=== PATIENT | male | born 1945 | race Caucasian/White ===

== ENCOUNTER 2020-06-12 06:34 | Observation (INO) ==
--- NOTE | 2020-05-06 11:10 | PAT Medication Instructions ---
Medication Instructions Date of Service May 06, 2020 Home Medications ascorbic acid (vitamin C) 100 mg PO QAM bilberry 150 mg PO QAM cholecalciferol (vitamin D3) 25 mcg PO QAM cyanocobalamin (vitamin B-12) 500 mcg PO PM ginkgo biloba 60 mg PO QAM ginseng 100 mg PO PM [Diyktqvkrpr-Gybzq-MPO Complex] 1 tab PO BID lutein 20 mg PO QAM magnesium 400 mg PO PM omega-3 fatty acids [Fish Oil] 1,000 mg PO PM omeprazole 20 mg PO PM s-adenosylmethionine [Stan-E] 400 mg PO PM saw palmetto 450 mg PO BID tramadol 50 mg PO BID turmeric 1,500 mg PO PM vitamin E 400 unit PO PM STOP taking 2 weeks before surgery If surgery is within 2 weeks, stop taking as soon as possible. bilberry 150 mg PO QAM ginkgo biloba 60 mg PO QAM ginseng 100 mg PO PM [Kqogogqhwvs-Tdvxv-MDG Complex] 1 tab PO BID lutein 20 mg PO QAM omega-3 fatty acids [Fish Oil] 1,000 mg PO PM s-adenosylmethionine [Stan-E] 400 mg PO PM saw palmetto 450 mg PO BID turmeric 1,500 mg PO PM vitamin E 400 unit PO PM DO NOT take the morning of surgery ascorbic acid (vitamin C) 100 mg PO QAM cholecalciferol (vitamin D3) 25 mcg PO QAM Take morning of surgery With a small sip of water, OTHERWISE NOTHING TO EAT OR DRINK AFTER MIDNIGHT: tramadol 50 mg PO BID (if needed, may be taken up to four hours before surgery) Take evening before surgery cyanocobalamin (vitamin B-12) 500 mcg PO PM omeprazole 20 mg PO PM tramadol 50 mg PO BID Other Notes If you have any questions please call us at [phone] or [phone] or [phone] or [phone]
--- NOTE | 2020-05-07 12:50 | Anesthesiology Consultation ---
Date of Service May 07, 2020 Assessment & Plan (1) Encounter for pre-operative examination: Chart Review Chart Review: Acceptable Risk for Surgery (pending surgeon ordered PCP clearance and preop Covid testing ) and Patient seen in Pre Admission Testing Awaiting surgeon ordered PCP clearance scheduled 05/14/20 Per PAT appt on 05/07/20, patient denies any recent travel. No known Covid positive contacts or Covid related symptoms. No known Covid infection in the past 90 days. Preop Covid testing scheduled 05/22/20= will await results. Educated on importance of self quarantining, social distancing and wearing mask in public both for the patient and household contacts. Teaching & Discussion Pre-Anesthesia Teaching/Discussion Notes: Instructed NPO after midnight before surgery,except medications with 15 cc of water. Medication instructions provided according to the [facility] guidelines. History Surgery Operation Date: 05/29/20 07:15 Proposed Procedures p Left Total Hip Arthroplasty - Kavin Macedo MD Height/Weight Height: 5 ft 10.5 in Weight: 86.8 kg Allergies Allergy/AdvReac Type Severity Reaction Status Date / Time Penicillins AdvReac Mild Gastrointestinal Verified 04/18/20 08:35 Upset Medications Home Medications Medication Instructions Recorded Confirmed Last Taken ascorbic acid (vitamin C) [Vitamin 100 mg PO QAM 04/18/20 04/18/20 Unknown C] bilberry 150 mg PO QAM 04/18/20 04/18/20 Unknown cholecalciferol (vitamin D3) 25 mcg PO QAM 04/18/20 04/18/20 Unknown [Vitamin D3] cyanocobalamin (vitamin B-12) 500 mcg PO PM 04/18/20 04/18/20 Unknown ginkgo biloba 60 mg PO QAM 04/18/20 04/18/20 Unknown ginseng 100 mg PO PM 04/18/20 04/18/20 Unknown viirehci-udjzw-tlj4-C-naz-bor 1 tab PO BID 04/18/20 04/18/20 Unknown [Bwfatxshclj-Pnfyx-XWF Complex] lutein 20 mg PO QAM 04/18/20 04/18/20 Unknown magnesium 400 mg PO PM 04/18/20 04/18/20 Unknown omega-3 fatty acids [Fish Oil] 1,000 mg PO PM 04/18/20 04/18/20 Unknown omeprazole 20 mg PO PM 04/18/20 04/18/20 Unknown s-adenosylmethionine [Stan-E] 400 mg PO PM 04/18/20 04/18/20 Unknown saw palmetto 450 mg PO BID 04/18/20 04/18/20 Unknown tramadol 50 mg PO BID 04/18/20 04/18/20 Unknown turmeric 1,500 mg PO PM 04/18/20 04/18/20 Unknown vitamin E 400 unit PO PM 04/18/20 04/18/20 Unknown Past Medical History Medical History GERD (gastroesophageal reflux disease) Stable Kidney stones Passed on own No current issues Osteoarthritis Exercise / Class Metabolic Activity II 4-5 Yardwork/Stairs/Walk up hill (one flight of stairs - no chest pain or SOB) Past Family History Family History Mother Diabetes Past Surgical History Surgical History History of bunionectomy of left great toe History of esophagogastroduodenoscopy (EGD) History of tonsillectomy History of tooth extraction Hx of cataract surgery bilat Hx of inguinal hernia repair S/P colonoscopy Past Anesthesia History No Hx of Anesthesia Complications and No Family Hx of Anesthesia Complications History of PONV No Hx of PONV and 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 No hx of seizures, stroke, [place], apnea/snoring. No hx of blood clots or blood transfusions Physical Exam Vital Signs VITALS BP 137/91 P 84 TEMP 98.3 SP02 96% RESP 16 Constitutional no acute distress ENMT Mouth: no TMJ clicking Thyromental Distance: > or= 3.5 Finger Breadths (3.5) Mallampati Class: III Missing molars Neck + short neck, + thick neck and + limited neck extension (mild to moderate ) Respiratory normal respiratory effort; no respiratory distress Auscultation: lungs clear to auscultation bilaterally; no wheezes Cardiovascular Rate/Rhythm: regular rate and regular rhythm Heart Sounds: no murmur Vessels: no carotid bruit Musculoskeletal Spine: no pain with cervical ROM Extremities: extremities normal to inspection Psychiatric Orientation: alert Testing Laboratory Results 05/07/20 13:23 05/07/20 13:23 PT 10.4 Seconds (9.0-12.0) 05/07/20 13:23 INR 1.0 (0.9-1.1) 05/07/20 13:23 Hemoglobin A1c 5.7 % (4.5-5.6) H 05/07/20 13:23 Urine Color Yellow 05/07/20 13:23 Urine Appearance Clear (Clear) 05/07/20 13:23 Urine pH 5.5 (4.5-7.5) 05/07/20 13:23 Ur Specific [place] 1.024 (1.000-1.030) 05/07/20 13:23 Urine Protein Negative (Negative) 05/07/20 13:23 Urine Glucose (UA) Negative (Negative) 05/07/20 13:23 Urine Ketones Trace (Negative) H 05/07/20 13:23 Urine Nitrite Negative (Negative) 05/07/20 13:23 Ur Leukocyte Esterase Negative (Negative) 05/07/20 13:23 Blood Type B Positive 05/07/20 13:23 Antibody Screen NEGATIVE 05/07/20 13:23 Electrocardiogram Date: 05/07/20 Findings: + NSR @ (78bpm) Incomplete RBBB. Rightward axis.
--- NOTE | 2020-05-07 13:56 | Electrocardiogram Report ---
Test Reason : Blood Pressure : / mmHG Vent. Rate : 078 BPM Atrial Rate : 078 BPM P-R Int : 206 ms QRS Dur : 090 ms QT Int : 374 ms P-R-T Axes : 047 093 051 degrees QTc Int : 426 ms Normal sinus rhythm Incomplete right bundle branch block Rightward axis Borderline ECG No previous ECGs available Confirmed by Ha Brown ([id number]) on 05/07/2020 1:56:31 PM Referred By: Kavin Macedo Confirmed By:Eugene Brown
--- NOTE | 2020-05-07 15:06 | History & Physical Report ---
Date of Service May 07, 2020 Assessment & Plan Admission and Anticipated Discharge Date Admission Date: PRE-OP Diagnosis: Left hip osteoarthritis Planned Procedure: Left total hip arthroplasty Plan: Patient is scheduled to undergo this procedure with Dr. Kavin Macedo at the [facility] on May 29, 2020. Risks and complications of the procedure such as: Infection, bleeding, pain, scarring, nerve blood vessel damage, weakness, wound problems, stiffness, incomplete relief of symptoms, hardware failure, hardware loosening, wear, fracture, tendon or ligament injury, dislocation, leg length inequality, blood clots, embolism, heart attack, stroke and were explained to the patient at his visit today. However informed consent form the procedure was not obtained, and will need to be completed on the day of surgery with Dr. Macedo present. Patient also understands risks of proceeding with surgical intervention during the COVID-19 pandemic. Currently he is asymptomatic and understands he will need to be tested at least 7 days prior to the procedure. We will also need to obtain preoperative medical clearance from the patient's primary care provider. He states that he has an appointment with Dr. Rahman next Tuesday. Patient is scheduled to meet with anesthesia at the hospital after his visit this morning, and while there he will obtain a CBC with differential, complete metabolic panel, PT/INR, hemoglobin A1c, urinalysis, urine culture and sensitivity, blood type and screen EKG and a nasal culture for MRSA. During today's visit we discussed total hip precautions, reviewed total hip packet, discussed discharge planning, lectures offered by [facility] in regards to joint replacement surgery via zoom, use of antibiotics prior to dental appointments procedures following joint placement surgery and the necessity of purchasing a hip kit, raised toilet seat and a walker prior to surgery. Patient was advised that he will be discharged from the hospital with prescriptions for oxycodone and diclofenac sodium for pain control. We will also have him purchase extra Tylenol and baby aspirin to use for pain control DVT prophylaxis effectively. Patient will be scheduled for his 2-week postoperative follow-up with myself on June 13 at 1 PM. He states that he is planning on in-home physical therapy for the first 2 weeks postoperatively and then transitioning to outpatient physical therapy after his 2-week follow-up appointment. Patient verbalized understanding of all information provided during today's visit. He thanked us for the care that he has received. If he has questions or concerns should arise prior to his surgery, he will contact the clinic. History of Present Illness Chief Complaint: Left Hip Pain Primary Care Provider: SAGE Yeh History of Present Illness (including history relevant to procedure): This 75-year-old male presents the clinic today for his preoperative history and physical. He has had issues with this hip for over a year. Normally he goes waterskiing in the summer but he was not able to water ski this past summer. He gets pain in his groin that is the worst when he is getting up from sitting. However he is also noticed stiffness in the hip and is having difficulty taking on and off shoes. He navigates up and down stairs but does not do this fluidly. Pain does not radiate. He saw one of the sports medicine physicians a few months ago, who provided him with a ultrasound-guided corticosteroid injection. He says 3 days afterward he started to get a little bit of relief but he feels like he is already back to where he was now 1 week later. 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 Enjoys going to the gym and working out but states that the pain prevents him from doing any type of lower extremity activity Review Of Systems: A 14 point review of systems is performed and is unremarkable except for those things stated in the HPI and past medical history. Past Medical History: Problems: Osteoarthritis of left hip Pre-op exam Congestion of upper airway GERD History of renal calculi Procedure History Procedure Procedure Date Comments Colonoscopy 09/12/2019 - Diverticulosis of the sigmoid colon.Internal hemorroids. Colonoscopy abnormal Left inguinal hernia repair Left foot bunionectomy Bilateral cataract removal Tonsillectomy/adenoidectomy 05/17/2016 - Follows in [place] - seen 3 months ago Allergies and Sensitivities: PCN (penicillin)(Cold sweat) PCN (penicillin)(Upset stomach) PCN (penicillin)(Nausea) Family history: Completely unremarkable Social history: Patient states that he regularly consumes between 3 and 5 alcoholic beverages per week. He denies tobacco or illicit drug use. Current Home Meds: (Last Updated 04/25 16:18) diclofenac traMADol (traMADol 50 mg oral tablet) 50 mg PO q8h PRN: as needed for pain Initial Wt: 05/07 87.0 kg 191 lb Allergies Allergy/AdvReac Type Severity Reaction Status Date / Time Penicillins AdvReac Mild Gastrointestinal Verified 04/18/20 08:35 Upset Home Medications Medication Instructions Recorded Confirmed Type ascorbic acid (vitamin C) [Vitamin 100 mg PO QAM 04/18/20 04/18/20 History C] bilberry 150 mg PO QAM 04/18/20 04/18/20 History cholecalciferol (vitamin D3) 25 mcg PO QAM 04/18/20 04/18/20 History [Vitamin D3] cyanocobalamin (vitamin B-12) 500 mcg PO PM 04/18/20 04/18/20 History ginkgo biloba 60 mg PO QAM 04/18/20 04/18/20 History ginseng 100 mg PO PM 04/18/20 04/18/20 History haexyelj-torqn-kuf9-C-naz-bor 1 tab PO BID 04/18/20 04/18/20 History [Eqtvxfmpyjw-Eouyd-TPP Complex] lutein 20 mg PO QAM 04/18/20 04/18/20 History magnesium 400 mg PO PM 04/18/20 04/18/20 History omega-3 fatty acids [Fish Oil] 1,000 mg PO PM 04/18/20 04/18/20 History omeprazole 20 mg PO PM 04/18/20 04/18/20 History s-adenosylmethionine [Stan-E] 400 mg PO PM 04/18/20 04/18/20 History saw palmetto 450 mg PO BID 04/18/20 04/18/20 History tramadol 50 mg PO BID 04/18/20 04/18/20 History turmeric 1,500 mg PO PM 04/18/20 04/18/20 History vitamin E 400 unit PO PM 04/18/20 04/18/20 History Past Med/Surg History Medical History GERD (gastroesophageal reflux disease) Stable Kidney stones Passed on own No current issues Osteoarthritis Surgical History History of bunionectomy of left great toe History of esophagogastroduodenoscopy (EGD) History of tonsillectomy History of tooth extraction Hx of cataract surgery bilat Hx of inguinal hernia repair S/P colonoscopy Family History Mother Diabetes Social History Smoking Status: Never smoker Second Hand Exposure: No; Hx Alcohol Use: Yes Alcohol type: beer and hard liquor Hx Substance Use: No Preferred Language: [place] Island[place] Communication Ability: Effective Privacy Officer Required: No Beliefs That Will Affect Care: None Current Living Situation: Spouse Feels Safe at Home: Yes Assistive Devices: Cane and Glasses Review of Systems All systems reviewed & are unremarkable except as noted in HPI & below Physical Exam Physical Exam: Physical Exam: (relevant to the procedure, including heart and lung evaluation) General: Alert and oriented x3 with proper grooming and hygiene Eyes: Pupils are equal and reactive to light with accommodation. Extraocular movements are intact Throat: Deferred due to COVID-19 precautions Cardiac: Regular rate and rhythm with no murmurs or gallops appreciated Lungs: Clear to auscultation throughout no wheezing, rales or rhonchi Abdomen: Nonobese, nondistended, nontender with normoactive bowel sounds Extremities: Left hip; 1 cm leg length discrepancy left side shorter than the right. Range of motion on the left hip is severely limited compared to the right. On the left he has 95 degrees of flexion versus 115 degrees on the other side. External rotation is to 35 versus 50 on the other side. Internal rotation is to -5 versus 15 on the other side. Positive impingement scour test. Equivocal Stinchfield test. No tenderness over the greater trochanter. Skin is intact. Palpable pulses distally. Sensation intact light touch. Neuro: Cranial nerves II through XII are intact no motor or sensory deficit Skin: Normal in appearance no open skin areas of discharge Results & Data ([facility]) Diagnostic Findings Studies (relevant to the procedure): x-rays done demonstrate severe osteoarthritis of the left hip with flattening of the femoral head and erosion of the superior acetabulum with subchondral cyst formation and proximal migration of the femoral head relative to the acetabulum
[2020-05-07 15:22] LABS: Basophils # (auto) 0.06 K/uL (0-0.2); Basophils % (auto) 0.6 %; Eosinophils # (auto) 0.37 K/uL (0-0.5); Eosinophils % (auto) 3.6 %; Hematocrit (blood only) 43.7 % (42-52); Hemoglobin 15.5 g/dL (14.0-18.0); Immature Granulocytes # (auto) 0.01 K/uL (0.00-0.02); Immature Granulocytes % (auto) 0.1 %; Lymphocytes # (auto) 2.54 K/uL (1.2-3.4); Lymphocytes % (auto) 24.6 %; Mean Corpuscular Hemoglobin 30.6 pg (25-34); Mean Corpuscular Hgb Conc 35.5 g/dL (32-36); Mean Corpuscular Volume 86.4 fL (80-100); Mean Platelet Volume 11.1 fL (7.4-10.4); Monocytes # (auto) 0.86 K/uL (0.11-0.59); Monocytes % (auto) 8.3 %; Neutrophils % (auto) 62.8 %; Platelet Count 284 K/uL (130-400); RDW Coefficient of Variation 13.1 % (11.5-14.5); RDW Standard Deviation 41.5 fL (36.4-46.3); Red Blood Count 5.06 M/uL (4.7-6.1); White Blood Count 10.34 K/uL (4.8-10.8)
[2020-05-07 15:35] LABS: Prothrombin Time 10.4 Seconds (9.0-12.0)
[2020-05-07 15:40] LABS: Appearance Urine Clear (Clear); Bilirubin Urine Negative (Negative); Blood Urine Negative (Negative); Color Urine Yellow; Glucose Urine UA Negative (Negative); Ketones Urine Trace (Negative); Leukocyte Esterase Urine Negative (Negative); Nitrite Urine Negative (Negative); Protein Urine Negative (Negative); Specific Gravity Urine 1.024 (1.000-1.030); Urobilinogen Urine Negative (Negative); pH Urine 5.5 (4.5-7.5)
[2020-05-07 16:21] LABS: BUN Creatinine Ratio 13.5 (10-20); Calcium 8.6 mg/dl (8.5-10.1); Creatinine Clr Calc Pharmacy 61.6 ml/min; Est GFR (African American) 77.7; Est GFR (Non-African American) 67.1
[2020-05-08 07:28] LABS: Estimated Average Glucose 117 mg/dl; Hemoglobin A1C 5.7 % (4.5-5.6)
--- NOTE | 2020-06-04 14:47 | History & Physical Report ---
Date of Service June 04, 2020 Assessment & Plan Admission and Anticipated Discharge Date Admission Date: PRE-OP Diagnosis: Left hip osteoarthritis Planned Procedure: Left total hip arthroplasty Plan: Patient is scheduled to undergo this procedure with Dr. Kavin Macedo at the [facility] on June 12, 2020. Risks and complications of the procedure such as: Infection, bleeding, pain, scarring, nerve blood vessel damage, weakness, wound problems, stiffness, incomplete relief of symptoms, hardware failure, hardware loosening, wear, fracture, tendon or ligament injury, dislocation, leg length inequality, blood clots, embolism, heart attack, stroke and were explained to the patient at his visit today. However informed consent form the procedure was not obtained, and will need to be completed on the day of surgery with Dr. Macedo present. Patient also understands risks of proceeding with surgical intervention during the COVID-19 pandemic. Currently he is asymptomatic and understands he will need to be tested at least 7 days prior to the procedure. We will also need to obtain preoperative medical clearance from the patient's primary care provider. He states that he has an appointment with Dr. Rahman next Tuesday. Patient is scheduled to meet with anesthesia at the hospital after his visit this morning, and while there he will obtain a CBC with differential, complete metabolic panel, PT/INR, hemoglobin A1c, urinalysis, urine culture and sensitivity, blood type and screen EKG and a nasal culture for MRSA. During today's visit we discussed total hip precautions, reviewed total hip packet, discussed discharge planning, lectures offered by [facility] in regards to joint replacement surgery via zoom, use of antibiotics prior to dental appointments procedures following joint placement surgery and the necessity of purchasing a hip kit, raised toilet seat and a walker prior to surgery. Patient was advised that he will be discharged from the hospital with prescriptions for oxycodone and diclofenac sodium for pain control. We will also have him purchase extra Tylenol and baby aspirin to use for pain control DVT prophylaxis effectively. Patient will be scheduled for his 2-week postoperative follow-up with David Quinn on June 27 at 11:15 AM. He states that he is planning on in-home physical therapy for the first 2 weeks postoperatively and then transitioning to outpatient physical therapy after his 2-week follow-up appointment. Patient verbalized understanding of all information provided during today's visit. He thanked us for the care that he has received. If he has questions or concerns should arise prior to his surgery, he will contact the clinic. History of Present Illness Chief Complaint: left hip pain Primary Care Provider: SAGE Yeh History of Present Illness (including history relevant to procedure): This 75-year-old male presents the clinic for his preoperative history and physical. He has had issues with this hip for over a year. Normally he goes waterskiing in the summer but he was not able to water ski this past summer. He gets pain in his groin that is the worst when he is getting up from sitting. However he is also noticed stiffness in the hip and is having difficulty taking on and off shoes. He navigates up and down stairs but does not do this fluidly. Pain does not radiate. He saw one of the sports medicine physicians a few months ago, who provided him with a ultrasound-guided corticosteroid injection. He says 3 days afterward he started to get a little bit of relief but he feels like he is already back to where he was now 1 week later. 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 Enjoys going to the gym and working out but states that the pain prevents him from doing any type of lower extremity activity. Patient was initially scheduled for surgery on 05/29/20 but was rescheduled for 06/12/20 due bed availability at [facility] due to influx of COVID + patients. Review Of Systems: A 14 point review of systems is performed and is unremarkable except for those things stated in the HPI and past medical history. Past Medical History: Problems: Osteoarthritis of left hip Pre-op exam Congestion of upper airway GERD History of renal calculi Procedure History Procedure Procedure Date Comments Colonoscopy 09/12/2019 - Diverticulosis of the sigmoid colon.Internal hemorroids. Colonoscopy abnormal Left inguinal hernia repair Left foot bunionectomy Bilateral cataract removal Tonsillectomy/adenoidectomy 05/17/2016 - Follows in [place] - seen 3 months ago Allergies and Sensitivities: PCN (penicillin)(Cold sweat) PCN (penicillin)(Upset stomach) PCN (penicillin)(Nausea) Family history: Completely unremarkable Social history: Patient states that he regularly consumes between 3 and 5 alcoholic beverages per week. He denies tobacco or illicit drug use. Current Home Meds: (Last Updated 04/25 16:18) diclofenac traMADol (traMADol 50 mg oral tablet) 50 mg PO q8h PRN: as needed for pain Initial Wt: 05/07 87.0 kg 191 lb Allergies Allergy/AdvReac Type Severity Reaction Status Date / Time Penicillins AdvReac Mild Gastrointestinal Verified 04/18/20 08:35 Upset Home Medications Medication Instructions Recorded Confirmed Type ascorbic acid (vitamin C) [Vitamin 100 mg PO QAM 04/18/20 04/18/20 History C] bilberry 150 mg PO QAM 04/18/20 04/18/20 History cholecalciferol (vitamin D3) 25 mcg PO QAM 04/18/20 04/18/20 History [Vitamin D3] cyanocobalamin (vitamin B-12) 500 mcg PO PM 04/18/20 04/18/20 History ginkgo biloba 60 mg PO QAM 04/18/20 04/18/20 History ginseng 100 mg PO PM 04/18/20 04/18/20 History pkrjifap-byikb-cml6-C-naz-bor 1 tab PO BID 04/18/20 04/18/20 History [Apqvtpfksiv-Ejypl-JIM Complex] lutein 20 mg PO QAM 04/18/20 04/18/20 History magnesium 400 mg PO PM 04/18/20 04/18/20 History omega-3 fatty acids [Fish Oil] 1,000 mg PO PM 04/18/20 04/18/20 History omeprazole 20 mg PO PM 04/18/20 04/18/20 History s-adenosylmethionine [Stan-E] 400 mg PO PM 04/18/20 04/18/20 History saw palmetto 450 mg PO BID 04/18/20 04/18/20 History tramadol 50 mg PO BID 04/18/20 04/18/20 History turmeric 1,500 mg PO PM 04/18/20 04/18/20 History vitamin E 400 unit PO PM 04/18/20 04/18/20 History Past Med/Surg History Medical History GERD (gastroesophageal reflux disease) Stable Kidney stones Passed on own No current issues Osteoarthritis Surgical History History of bunionectomy of left great toe History of esophagogastroduodenoscopy (EGD) History of tonsillectomy History of tooth extraction Hx of cataract surgery bilat Hx of inguinal hernia repair S/P colonoscopy Family History Mother Diabetes Social History Smoking Status: Never smoker Second Hand Exposure: No; Hx Alcohol Use: Yes Alcohol type: beer and hard liquor Hx Substance Use: No Preferred Language: Malagasy Communication Ability: Effective Regional Facilities Manager Required: No Beliefs That Will Affect Care: None Current Living Situation: Spouse Feels Safe at Home: Yes Assistive Devices: Cane and Glasses Review of Systems All systems reviewed & are unremarkable except as noted in HPI & below Physical Exam Physical Exam: Physical Exam: (relevant to the procedure, including heart and lung evaluation) General: Alert and oriented x3 with proper grooming and hygiene Eyes: Pupils are equal and reactive to light with accommodation. Extraocular movements are intact Throat: Deferred due to COVID-19 precautions Cardiac: Regular rate and rhythm with no murmurs or gallops appreciated Lungs: Clear to auscultation throughout no wheezing, rales or rhonchi Abdomen: Nonobese, nondistended, nontender with normoactive bowel sounds Extremities: Left hip; 1 cm leg length discrepancy left side shorter than the right. Range of motion on the left hip is severely limited compared to the right. On the left he has 95 degrees of flexion versus 115 degrees on the other side. External rotation is to 35 versus 50 on the other side. Internal rotation is to -5 versus 15 on the other side. Positive impingement scour test. Equivocal Stinchfield test. No tenderness over the greater trochanter. Skin is intact. Palpable pulses distally. Sensation intact light touch. Neuro: Cranial nerves II through XII are intact no motor or sensory deficit Skin: Normal in appearance no open skin areas of discharge Results & Data ([facility]) Laboratory Results Lab Results 05/07/20 05/07/20 05/07/20 Range/Units 13:23 13:23 13:23 WBC 10.34 (4.8-10.8) K/uL RBC 5.06 (4.7-6.1) M/uL Hgb 15.5 (14.0-18.0) g/dL Hct 43.7 (42-52) % MCV 86.4 (80-100) fL MCH 30.6 (25-34) pg MCHC 35.5 (32-36) g/dL RDW Std Deviation 41.5 (36.4-46.3) fL RDW Coeff of Dinh 13.1 (11.5-14.5) % Plt Count 284 (130-400) K/uL MPV 11.1 H (7.4-10.4) fL Immature Gran % (Auto) 0.1 % Neut % (Auto) 62.8 % Lymph % (Auto) 24.6 % [place] % (Auto) 8.3 % Eos % (Auto) 3.6 % Baso % (Auto) 0.6 % Neut # (Auto) 6.50 (1.4-6.5) K/uL Lymph # (Auto) 2.54 (1.2-3.4) K/uL [place] # (Auto) 0.86 H (0.11-0.59) K/uL Eos # (Auto) 0.37 (0-0.5) K/uL Baso # (Auto) 0.06 (0-0.2) K/uL Immature Gran # (Auto) 0.01 (0.00-0.02) K/uL PT 10.4 (9.0-12.0) Seconds INR 1.0 (0.9-1.1) Sodium (136-145) mmol/L Potassium (3.5-5.1) mmol/L Chloride (98-107) mmol/L Carbon Dioxide (21-32) mmol/L Anion Gap (3-11) BUN (7-18) mg/dl Creatinine (0.6-1.4) mg/dl Est Cr Clr Drug Dosing ml/min Est GFR ( Amer) Est GFR (Non-Af Amer) BUN/Creatinine Ratio (10-20) Glucose (70-99) mg/dl Estimat Average Glucose mg/dl Hemoglobin A1c (4.5-5.6) % Calcium (8.5-10.1) mg/dl Urine Color Urine Appearance (Clear) Urine pH (4.5-7.5) Ur Specific [place] (1.000-1.030) Urine Protein (Negative) Urine Glucose (UA) (Negative) Urine Ketones (Negative) Urine Blood (Negative) Urine Nitrite (Negative) Urine Bilirubin (Negative) Urine Urobilinogen (Negative) Ur Leukocyte Esterase (Negative) Nasal Screen MRSA (PCR) (Negative) Blood Type B Positive Antibody Screen NEGATIVE 05/07/20 05/07/20 05/07/20 Range/Units 13:23 13:23 13:23 WBC (4.8-10.8) K/uL RBC (4.7-6.1) M/uL Hgb (14.0-18.0) g/dL Hct (42-52) % MCV (80-100) fL MCH (25-34) pg MCHC (32-36) g/dL RDW Std Deviation (36.4-46.3) fL RDW Coeff of Dinh (11.5-14.5) % Plt Count (130-400) K/uL MPV (7.4-10.4) fL Immature Gran % (Auto) % Neut % (Auto) % Lymph % (Auto) % [place] % (Auto) % Eos % (Auto) % Baso % (Auto) % Neut # (Auto) (1.4-6.5) K/uL Lymph # (Auto) (1.2-3.4) K/uL [place] # (Auto) (0.11-0.59) K/uL Eos # (Auto) (0-0.5) K/uL Baso # (Auto) (0-0.2) K/uL Immature Gran # (Auto) (0.00-0.02) K/uL PT (9.0-12.0) Seconds INR (0.9-1.1) Sodium 136 (136-145) mmol/L Potassium 4.0 (3.5-5.1) mmol/L Chloride 105 (98-107) mmol/L Carbon Dioxide 25 (21-32) mmol/L Anion Gap 6.0 (3-11) BUN 14 (7-18) mg/dl Creatinine 1.07 (0.6-1.4) mg/dl Est Cr Clr Drug Dosing 61.6 ml/min Est GFR ( Amer) 77.7 Est GFR (Non-Af Amer) 67.1 BUN/Creatinine Ratio 13.5 (10-20) Glucose 90 (70-99) mg/dl Estimat Average Glucose mg/dl Hemoglobin A1c (4.5-5.6) % Calcium 8.6 (8.5-10.1) mg/dl Urine Color Yellow Urine Appearance Clear (Clear) Urine pH 5.5 (4.5-7.5) Ur Specific [place] 1.024 (1.000-1.030) Urine Protein Negative (Negative) Urine Glucose (UA) Negative (Negative) Urine Ketones Trace H (Negative) Urine Blood Negative (Negative) Urine Nitrite Negative (Negative) Urine Bilirubin Negative (Negative) Urine Urobilinogen Negative (Negative) Ur Leukocyte Esterase Negative (Negative) Nasal Screen MRSA (PCR) Negative (Negative) Blood Type Antibody Screen 05/07/20 Range/Units 13:23 WBC (4.8-10.8) K/uL RBC (4.7-6.1) M/uL Hgb (14.0-18.0) g/dL Hct (42-52) % MCV (80-100) fL MCH (25-34) pg MCHC (32-36) g/dL RDW Std Deviation (36.4-46.3) fL RDW Coeff of Dinh (11.5-14.5) % Plt Count (130-400) K/uL MPV (7.4-10.4) fL Immature Gran % (Auto) % Neut % (Auto) % Lymph % (Auto) % [place] % (Auto) % Eos % (Auto) % Baso % (Auto) % Neut # (Auto) (1.4-6.5) K/uL Lymph # (Auto) (1.2-3.4) K/uL [place] # (Auto) (0.11-0.59) K/uL Eos # (Auto) (0-0.5) K/uL Baso # (Auto) (0-0.2) K/uL Immature Gran # (Auto) (0.00-0.02) K/uL PT (9.0-12.0) Seconds INR (0.9-1.1) Sodium (136-145) mmol/L Potassium (3.5-5.1) mmol/L Chloride (98-107) mmol/L Carbon Dioxide (21-32) mmol/L Anion Gap (3-11) BUN (7-18) mg/dl Creatinine (0.6-1.4) mg/dl Est Cr Clr Drug Dosing ml/min Est GFR ( Amer) Est GFR (Non-Af Amer) BUN/Creatinine Ratio (10-20) Glucose (70-99) mg/dl Estimat Average Glucose 117 mg/dl Hemoglobin A1c 5.7 H (4.5-5.6) % Calcium (8.5-10.1) mg/dl Urine Color Urine Appearance (Clear) Urine pH (4.5-7.5) Ur Specific [place] (1.000-1.030) Urine Protein (Negative) Urine Glucose (UA) (Negative) Urine Ketones (Negative) Urine Blood (Negative) Urine Nitrite (Negative) Urine Bilirubin (Negative) Urine Urobilinogen (Negative) Ur Leukocyte Esterase (Negative) Nasal Screen MRSA (PCR) (Negative) Blood Type Antibody Screen
[~2020-06-12 06:34] MED LIST: ACETAMINOPHEN 500 MG TAB PO SCH; BUPIVACAINE 0.5 % 5 MG/1 ML PF 10ML VIAL ONE; CeleBREX 200 MG CAP PO SCH; FAMOTIDINE 20 MG TAB PO SCH; LR 500ML BOLUS, THEN 15ML/HR IV SCH; LR 60ML/HR IV SCH; METOCLOPRAMIDE HCL 10 MG TABLET PO SCH; ROPIVACAINE 0.5% HCL/PF 150 MG, BUPIVACAINE 0.75% MPF 20 ML, EPINEPHrine 0.15 MG, Ketor... INFIL SCH; ROPIVACAINE 0.5% HCL/PF 150 MG, BUPIVACAINE 0.75% MPF 20 ML, EPINEPHrine 30MG/30ML (OR ... INSTIL SCH; Scopolamine 1 MG TDSY TD SCH; Scopolamine CHECK PATCH PLACEMENT SCH; TRANEXAMIC ACID 1,000 MG **IV Intra-op IV SCH; TRANEXAMIC ACID 1,000 MG **IV Pre-op IV SCH; [UNRECOGNIZED DRUG - REMARK] SCH; ceFAZolin 2000MG 2,000 MG/15 ML SYR IV SCH; dexAMETHasone 4 MG TAB PO SCH; traMADol HCL 50 MG TABLET PO SCH
[2020-06-12] MEDS ORDERED: MIDAZOLAM HCL 1 MG/ML 2ML VIAL ONE (07:24)
[2020-06-12] MEDS ORDERED: ONDANSETRON INJ 2 MG/ML 2 ML VIAL ONE (07:28)
[2020-06-12] MEDS ORDERED: GLYCOPYRROLATE 0.2 MG/ML VIAL ONE (07:28)
[2020-06-12] MEDS ORDERED: PROPOFOL IV EMULSION 10 MG/ML 20 ML VIAL IV ONE (07:28)
[2020-06-12] MEDS ORDERED: KETAMINE 50 MG/5 ML SYRINGE ONE (07:28)
[2020-06-12] MEDS ORDERED: LIDOCAINE HCL 2% 2 ML VIAL/AMP(20MG/ML) INFIL ONE (07:28)
--- NOTE | 2020-06-12 09:06 | History & Physical Bridge Note ---
Date of Service June 12, 2020 History & Physical Bridge Note I have examined the patient, reviewed the History & Physical and in the interval since the performance of the History & Physical I have noted the following changes of clinical significance: no changes noted
[2020-06-12] MEDS ORDERED: ORTHO JOINT ANESTHETIC ONE (09:15)
[2020-06-12] MEDS ORDERED: ATROPINE SULFATE 0.1 MG/ML 10ML SYR IV PRN (09:47)
[2020-06-12] MEDS ORDERED: fentaNYL citrate 100 MCG/2 ML VIAL IV PRN (09:47)
[2020-06-12] MEDS ORDERED: ONDANSETRON INJ 2 MG/ML 2 ML VIAL IV PRN ×2 (09:47→11:27)
[2020-06-12] MEDS ORDERED: ePHEDrine sulfate 50 MG/ML AMP IV PRN (09:47)
[2020-06-12] MEDS ORDERED: PHENYLEPHRINE 100MCG/ML 5ML SYR ONE (10:09)
--- NOTE | 2020-06-12 11:23 | Operative Report ---
Post Operative Report Pre & Post Diagnosis Operation Date: 06/12/20 09:15 Pre-Op Diagnosis: Left Hip Osteoarthritis Post-Op Diagnosis: Left Hip Osteoarthritis I identified the patient and participated in the time-out.: Yes Procedure Operation Date: 06/12/20 09:15 Actual Procedures p Left Total Hip Arthroplasty, Uncemented(Left). Bone grafting acetabular cyst. - Kavin Macedo MD Surgeon Kavin Macedo MD Scientific Helper CARSON Macario PA-C. No resident or fellow was available to assist. Estimated Blood Loss 100 Findings See Below Upon dislocating the hip the patient had collapse of the superior surface as expected from his x-rays. In the acetabulum there was some lobular synovitis seen centrally. This was curetted out and sent for pathology and culture due to its abnormal appearance. Acetabular cyst superiorly and posterior inferiorly were curetted out and grafted with acetabular reamings. Total hip arthroplasty was then performed using a ceramic on polyethylene bearing surface through posterior approach. Specimens Left hip synovitis Anesthesia Type Spinal MAC Complications none Disposition Accompanied Patient To Recovery: No Disposition: Recovery Room Indications 77-year-old male with left hip pain refractory to conservative management. X- rays demonstrate collapse of the femoral head and erosion of the superior acetabulum. Subchondral cyst formation is noted in the acetabulum. As a result of the erosion of the acetabulum femoral head patient also has a leg length discrepancy around 5 mm. I had a long discussion with him about the risks and benefits of surgery, alternatives to surgery, and expected outcomes. After reviewing all these elected proceed with surgery. All questions were answered. Informed sent was signed. Description of Procedure Patient was identified in the preoperative holding area and the surgical site, left hip, was marked. A spinal anesthetic was placed, then the patient was brought back to the main operating room, placed in the operating table and moved into the lateral decubitus position. Axillary roll was placed. All bony prominences were padded. Perioperative antibiotics and tranexamic acid 1 gram IV were administered. Operative extremity was prepped and draped in the normal sterile fashion. Prior to incision a multidisciplinary timeout was called. All in the room were in agreement. We began by making an incision for a posterior approach to the hip. We dissected down through subcutaneous tissues to the level of the fascia. The fascia was incised in line with the incision. Charnley bow was placed. The trochanteric bursa was excised. The piriformis and short external rotators were dissected off the posterior aspect of the hip. A box cut was made in the capsule. The femoral head was dislocated. The femoral neck cut was made at our preoperative template. The acetabulum was then exposed. As noted above, the acetabulum showed erosion superiorly with lobular synovitis centrally. Synovitis was removed with a large curette. Part of this was sent for permanent section and the other part was sent for culture. Suspicion for infection however was extremely low. Therefore I felt it was in the patient's best interest to not wait for frozen section. The labrum was sharply excised. Contents of the cotyloid fossa were removed with electrocautery. We then began reaming at a size 8 mm less than our preoperative template. We reamed up by [address] the way up to a size 58 mm cup. This gave us good bleeding cancellus bone circumferentially. 2 acetabular cysts were noted superiorly approximately 8 mm in diameter. A third acetabular cyst was noted posterior inferiorly approximately 10 mm in diameter but shallow. These were all curetted out to remove any soft tissue. Acetabulum was irrigated out and dried. Acetabular reamings were then impacted into the cysts. Next, the real [place] Gription cup was impacted down into position with 45 degrees of lateral opening and 25 degrees of anteversion. A single cancellous bone screw was placed up into the ilium. Excellent fixation was obtained. A +4 acetabular trial was then placed because of the patient's leg length discrepancy. Next we turned our attention to the femur. The lateral neck was removed with a box osteotome. Intramedullary guide was used followed by the lateralizing reamer. We then reamed up to a size 6 [place] stem. We then broached all the way up to a size 5. We began trialing with a standard offset neck and a +8.5 head. Hip was reduced. Leg lengths were symmetric. The hip was stable in extension and external rotation, and stable in the sleeper position. At 90 degrees of hip flexion the hip could be internally rotated 60 degrees before levering out of the cup. I was very happy with the stability exam. Therefore the hip was dislocated and the femoral trial was removed. The femoral canal was irrigated and dried. The acetabular trial was removed and a +4 [place] Ultrex polyethylene liner for 36 mm femoral head was then impacted down into the shell. The locking mechanism was checked and it had engaged appropriately. Next, the femoral stem was reexposed. The real size 5 standard offset [place] femoral stem was opened up. This was impacted down into position. It sat about 2 mm more proud than the femoral broach. The +5 head was placed down onto the trunnion and the hip was reduced. His stability exam was unchanged and the leg lengths were symmetric. Therefore the 36 mm ceramic femoral head with a +5 mm offset was opened up and gently impacted down onto the trunnion. The hip was atraumatically reduced. Another 1 gram of IV tranexamic acid was started prior to closure. The wound was irrigated out with sterile Betadine solution. The periarticular injection cocktail was then placed. The short external rotators, piriformis, and posterior capsule were repaired through drill holes in the greater trochanter using #2 Vicryl. The fascia was run with a looped #1 PDS. The subcutaneous layer was closed with #1 PDS. The dermal layer was closed with 2-0 Vicryl. Zip line was used for the skin followed by a Silverlon dressing. A compressive dressing was then placed. The patient was then rolled supine. Leg lengths were rechecked and were symmetric. An abduction pillow was placed. Sedation was l ifted and the patient was transferred to recovery room in stable condition. Summary of implants: Depuy [place] Gription Acetabular Shell Sector Cup, 58 mm outer diameter [place] Cancellous bone screw, 6.5 x 40 mm [place] Altrx Polyethylene Acetabular Liner, +4 offset, with a 36 mm inner diameter DePuy [place] Femoral stem with [place], 12/14 taper, size 5 standard offset 36 mm ceramic femoral head with +5 offset Postoperative course: Patient will be admitted to the hospital from the recovery room. Patient will be weightbearing as tolerated with posterior hip precautions. Aspirin for DVT prophylaxis I attest to the content of the Intraoperative Record and any orders documented therein. Any exceptions are noted below.
[2020-06-12] MEDS ORDERED: TAMSULOSIN HCL 0.4 MG CAP PO PRN (11:27)
[2020-06-12] MEDS ORDERED: ALUMINUM/MAGNESIUM SUSP 30 ML UDC PO PRN (11:27)
[2020-06-12] MEDS ORDERED: oxyCODONE HCL IR 5 MG TAB (IMMEDIATE RELEASE) PO PRN (11:27)
[2020-06-12] MEDS ORDERED: diphenhydrAMINE 50 MG/ML VIAL IV PRN (11:27)
[2020-06-12] MEDS ORDERED: HYDROmorphone INJ 0.5 MG/0.5 ML SYR IV PRN (11:27)
[2020-06-12] MEDS ORDERED: MAGNESIUM HYDROXIDE SUSP 30 ML UDC PO PRN (11:27)
[2020-06-12] MEDS ORDERED: NALOXONE HCL 0.4 MG/1 ML VIAL/CARP IV PRN (11:27)
[2020-06-12] MEDS ORDERED: bisacodyL 10 MG SUPP PR PRN (11:27)
[2020-06-12] MEDS ORDERED: METOCLOPRAMIDE HCL INJ 5 MG/ML 2 ML VIAL IV PRN (11:27)
--- NOTE | 2020-06-12 11:27 | Operative Report ---
Post Operative Report Pre & Post Diagnosis Operation Date: 06/12/20 09:15 Pre-Op Diagnosis: Left Hip Osteoarthritis Post-Op Diagnosis: Left Hip Osteoarthritis I identified the patient and participated in the time-out.: Yes Procedure Operation Date: 06/12/20 09:15 Actual Procedures p Left Total Hip Arthroplasty, Uncemented(Left) - Kavin Macedo MD Surgeon Kavin Macedo MD Photographer Apprentice CARSON Macario PA-C. No resident or fellow was available to assist. Estimated Blood Loss 100 Findings Consistent with Post-Op Diagnosis Specimens Femoral head, Acetabular synovitis Complications none Disposition Accompanied Patient To Recovery: No Disposition: Recovery Room Description of Procedure I was present during the entire procedure assisting with positioning, prepping, draping, wound retraction, wound closure, dressing and abduction pillow placement. No fellow present. Please see Dr. Macedo procedure note for specifics of the case. I attest to the content of the Intraoperative Record and any orders documented therein. Any exceptions are noted below.
--- NOTE | 2020-06-12 11:48 | Anesthesiology Progress Note ---
Date of Service June 12, 2020 Anesthesia Post Procedure Vital Signs Vital Signs: Temp Pulse Pulse Resp BP Pulse Ox 06/12/20 11:45 81 16 114/73 96 06/12/20 11:35 77 14 112/73 96 06/12/20 11:25 36.6 C 87 19 104/69 97 06/12/20 07:11 36.9 C 82 20 144/99 H 18 L Transfer of Care Handoff Completed per policy Notes Mental Status: alert / awake / arousable and participated in evaluation Nausea / Vomiting: adequately controlled Pain: adequately controlled Airway Patency, RR, SpO2: stable & adequate BP & HR: stable & adequate Hydration State: stable & adequate Neuraxial Anesthesia: was administered and sensory block is resolving Anesthetic Complications: no major complications apparent and Pt Satisfied with anesthetic care
--- NOTE | 2020-06-12 12:14 | XRay Report ---
XR pelvis 1-2V routine HISTORY: 75 years-old Male Post Surgical left hip total joint arthroplasty COMPARISON: Pelvis radiograph 05/07/2020 TECHNIQUE: Portable AP view of the chest FINDINGS: Left hip total joint arthroplasty. Expected postoperative soft tissue swelling with deep tissue air. Moderate to severe right hip osteoarthritis. No acute fracture, dislocation or opaque foreign body. D emineralized appearance of the bones. IMPRESSION: 1. No acute fracture. 2. Satisfactory alignment of the left hip total joint arthroplasty. ACT 112: Negative or not required by law. The above report was generated using voice recognition software. It may contain grammatical, syntax o r spelling errors. Electronically signed by: Khang Lopez M.D. 06/12/2020 12:12 PM
[2020-06-12] MEDS: SODIUM CHLORIDE 0.9% 1000ML 1,000 ML IV SCH ×2 (12:45→22:17)
[2020-06-12] MEDS: KETOROLAC TROMETHAMINE 15 MG/ML VIAL IV SCH ×2 (13:31→19:22)
[2020-06-12] MEDS: ACETAMINOPHEN 500 MG TAB PO SCH ×2 (13:31→22:08)
[2020-06-12] MEDS: Scopolamine CHECK PATCH PLACEMENT SCH ×2 (16:11→23:11)
[2020-06-12] MEDS ORDERED: TRANEXAMIC ACID / 0.7% NACL 1,000 MG/100 ML BAG IV SCH (17:29)
[2020-06-12] MEDS: ceFAZolin 2000MG 2,000 MG/15 ML SYR IV SCH (18:11)
[2020-06-12] MEDS: DOCUSATE SODIUM 100 MG CAP PO SCH (20:37)
[2020-06-12] MEDS ORDERED: GINSENG 100 MG PO SCH (21:00)
[2020-06-12] MEDS ORDERED: OMEGA-3 (PURIFIED FISH OIL) 1 GM CAP PO SCH (21:00)
[2020-06-12] MEDS ORDERED: CYANOCOBALAMIN 500 MCG TABLET (VITAMIN B-12) PO SCH (21:00)
[2020-06-12] MEDS ORDERED: SENNA 8.6 MG TAB PO SCH (21:00)
[2020-06-12] MEDS ORDERED: S ADENOSYLMETHIONINE 400 MG PO SCH (21:00)
[2020-06-12] MEDS ORDERED: NON-FORMULARY MEDICATION (Turmeric 400 mg Capsule) PO SCH (21:00)
[2020-06-12] MEDS ORDERED: CeleBREX 200 MG CAP PO SCH (21:00)
[2020-06-12] MEDS ORDERED: MAGNESIUM OXIDE 400 MG TAB PO SCH (21:00)
[2020-06-12] MEDS ORDERED: NON-FORMULARY MEDICATION (Saw Palmetto 450 mg Capsule) PO SCH (21:00)
[2020-06-12] MEDS ORDERED: PANTOprazole 40 MG TAB PO SCH (21:00)
[2020-06-12] MEDS ORDERED: GLUCOSAM CHOND MSM1 C MANG BOR PO SCH (21:00)
[2020-06-12] MEDS ORDERED: TOCOPHERYL, DL-ALPHA 400 UNITS CAP PO SCH (21:00)
[2020-06-13] MEDS: KETOROLAC TROMETHAMINE 15 MG/ML VIAL IV SCH ×2 (02:05→08:53)
[2020-06-13] MEDS: ceFAZolin 2000MG 2,000 MG/15 ML SYR IV SCH (02:05)
[2020-06-13] MEDS: ACETAMINOPHEN 500 MG TAB PO SCH (05:53)
[2020-06-13 05:54] LABS: Basophils # (auto) 0.01 K/uL (0-0.2); Basophils % (auto) 0.1 %; Hematocrit (blood only) 37.2 % (42-52); Hemoglobin 13.1 g/dL (14.0-18.0); Immature Granulocytes # (auto) 0.04 K/uL (0.00-0.02); Immature Granulocytes % (auto) 0.2 %; Lymphocytes # (auto) 1.62 K/uL (1.2-3.4); Lymphocytes % (auto) 9.3 %; Mean Corpuscular Hemoglobin 30.3 pg (25-34); Mean Corpuscular Hgb Conc 35.2 g/dL (32-36); Mean Corpuscular Volume 86.1 fL (80-100); Mean Platelet Volume 10.4 fL (7.4-10.4); Monocytes # (auto) 1.19 K/uL (0.11-0.59); Monocytes % (auto) 6.9 %; Neutrophils % (auto) 83.5 %; Platelet Count 263 K/uL (130-400); RDW Coefficient of Variation 12.9 % (11.5-14.5); RDW Standard Deviation 41.4 fL (36.4-46.3); Red Blood Count 4.32 M/uL (4.7-6.1); White Blood Count 17.36 K/uL (4.8-10.8)
[2020-06-13 06:14] LABS: BUN Creatinine Ratio 12.3 (10-20); Calcium 8.4 mg/dl (8.5-10.1); Creatinine Clr Calc Pharmacy 47.8 ml/min; Est GFR (African American) 57.2; Est GFR (Non-African American) 49.3; Potassium 4.4 mmol/L (3.5-5.1)
[2020-06-13] MEDS ORDERED: dexAMETHasone 4 MG TAB PO SCH (08:00)
[2020-06-13] MEDS: Scopolamine CHECK PATCH PLACEMENT SCH (08:53)
[2020-06-13] MEDS: DOCUSATE SODIUM 100 MG CAP PO SCH ×2 (08:54→08:58)
[2020-06-13] MEDS ORDERED: ASCORBIC ACID 500 MG TAB PO SCH (09:00)
[2020-06-13] MEDS ORDERED: CHOLECALCIFEROL 1,000 UNITS 25 MCG TAB PO SCH (09:00)
[2020-06-13] MEDS ORDERED: NON-FORMULARY MEDICATION (Lutein 20 mg Tablet) PO SCH (09:00)
[2020-06-13] MEDS ORDERED: BILBERRY PO SCH (09:00)
[2020-06-13] MEDS ORDERED: GINKGO BILOBA 60 MG PO SCH (09:00)
[2020-06-13] MEDS ORDERED: MULTIVITAMIN TAB PO SCH (09:00)
[2020-06-13] MEDS ORDERED: ASPIRIN 81 MG ECTAB PO SCH (09:00)
--- NOTE | 2020-06-13 10:25 | Orthopedic Progress Note ---
Date of Service June 13, 2020 Assessment & Plan (1) S/P total hip arthroplasty: Reviewed total hip precautions PT/OT Weightbearing as tolerated with walker assistance Abduction pillow use x6 weeks Keep dressing in place Ice with EZ WRAP Pain control with p.o. medication DVT prophylaxis with DANIEL stockings and aspirin Patient plans on in-home physical therapy for the first 2 weeks postoperatively Follow-up at [facility] orth[facility]ics in 2 weeks as previously scheduled With questions contact our clinic at Admission and Anticipated Discharge Date Admission Date: June 12, 2020 Subjective This 75 yo M is day 1 s/p Left Total Hip Arthroplasty. Patient states that he is doing very well. States his pain is well controlled with p.o. pain medication. States he has been able to transition from his bed to the chair and from the chair to the bathroom using his walker. He states that he hopes to be able to go home today after doing his PT and OT this morning. Currently he denies chest pain, shortness of breath, fever, chills, sweats, lethargy, nausea, vomiting, diarrhea or numbness or tingling in lower extremity. Review of Systems Review of Systems: All systems reviewed & are unremarkable except as noted in Subjective Physical Exam Physical Exam: Left hip: Silverlon dressing is clean dry and intact. Patient is able to actively perform a straight leg raise test without difficulty. He is able to actively dorsi and plantarflex his foot. Logroll test is negative. Light passive internal and external rotation of the hip causes no pain. Knee flexion from 0 to to 90 degrees. Quad strength is 3-1/2 out of 5. Patient's calf is soft and supple nontender to palpation. He is neurovascularly intact in the left lower extremity. Peripheral pulses are 2+. Capillary refill is less than 2 seconds. Results & Data ([facility]) Vital Signs (Past 12 Hours) Vital Signs Temp Pulse Pulse Resp BP Pulse Ox 06/13/20 07:16 36.5 C 61 16 124/68 97 06/13/20 02:11 36.6 C 57 L 16 112/65 92 06/12/20 22:30 36.7 C 66 20 109/62 94 Laboratory Results 06/13/20 06/13/20 06/13/20 Range/Units 05:25 05:25 05:25 WBC 17.36 H (4.8-10.8) K/uL RBC 4.32 L (4.7-6.1) M/uL Hgb 13.1 L (14.0-18.0) g/dL Hct 37.2 L (42-52) % MCV 86.1 (80-100) fL MCH 30.3 (25-34) pg MCHC 35.2 (32-36) g/dL RDW Std Deviation 41.4 (36.4-46.3) fL RDW Coeff of Dinh 12.9 (11.5-14.5) % Plt Count 263 (130-400) K/uL MPV 10.4 (7.4-10.4) fL Immature Gran % (Auto) 0.2 % Neut % (Auto) 83.5 % Lymph % (Auto) 9.3 % Hardee % (Auto) 6.9 % Eos % (Auto) 0.0 % Baso % (Auto) 0.1 % Neut # (Auto) 14.50 H (1.4-6.5) K/uL Lymph # (Auto) 1.62 (1.2-3.4) K/uL Hardee # (Auto) 1.19 H (0.11-0.59) K/uL Eos # (Auto) 0.00 (0-0.5) K/uL Baso # (Auto) 0.01 (0-0.2) K/uL Immature Gran # (Auto) 0.04 H (0.00-0.02) K/uL Sodium 136 (136-145) mmol/L Potassium 4.4 (3.5-5.1) mmol/L Chloride 107 (98-107) mmol/L Carbon Dioxide 22 (21-32) mmol/L Anion Gap 7.0 (3-11) BUN 17 (7-18) mg/dl Creatinine 1.38 (0.6-1.4) mg/dl Est Cr Clr Drug Dosing 47.8 ml/min Est GFR ( Amer) 57.2 Est GFR (Non-Af Amer) 49.3 BUN/Creatinine Ratio 12.3 (10-20) Glucose 142 H (70-99) mg/dl Calcium 8.4 L (8.5-10.1) mg/dl Hepatitis C Ab Screen Neg (Neg)
--- NOTE | 2020-06-13 10:31 | Discharge Summary ---
Date of Service June 13, 2020 Admission HPI Per Admitting Provider History of Present Illness (including history relevant to procedure): This 75-year-old male presents the clinic for his preoperative history and physical. He has had issues with this hip for over a year. Normally he goes waterskiing in the summer but he was not able to water ski this past summer. He gets pain in his groin that is the worst when he is getting up from sitting. However he is also noticed stiffness in the hip and is having difficulty taking on and off shoes. He navigates up and down stairs but does not do this fluidly. Pain does not radiate. He saw one of the sports medicine physicians a few months ago, who provided him with a ultrasound-guided corticosteroid injection. He says 3 days afterward he started to get a little bit of relief but he feels like he is already back to where he was now 1 week later. 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 Enjoys going to the gym and working out but states that the pain prevents him from doing any type of lower extremity activity. Patient was initially scheduled for surgery on 05/29/20 but was rescheduled for 06/12/20 due bed availability at [facility] due to influx of COVID + patients. Review Of Systems: A 14 point review of systems is performed and is unremarkable except for those things stated in the HPI and past medical history. Past Medical History: Problems: Osteoarthritis of left hip Pre-op exam Congestion of upper airway GERD History of renal calculi Procedure History Procedure Procedure Date Comments Colonoscopy 09/12/2019 - Diverticulosis of the sigmoid colon.Internal hemorroids. Colonoscopy abnormal Left inguinal hernia repair Left foot bunionectomy Bilateral cataract removal Tonsillectomy/adenoidectomy 05/17/2016 - Follows in [place] - seen 3 months ago Allergies and Sensitivities: PCN (penicillin)(Cold sweat) PCN (penicillin)(Upset stomach) PCN (penicillin)(Nausea) Family history: Completely unremarkable Social history: Patient states that he regularly consumes between 3 and 5 alcoholic beverages per week. He denies tobacco or illicit drug use. Current Home Meds: (Last Updated 04/25 16:18) diclofenac traMADol (traMADol 50 mg oral tablet) 50 mg PO q8h PRN: as needed for pain Initial Wt: 05/07 87.0 kg 191 lb Admission Exam Per Admitting Provider Physical Exam: (relevant to the procedure, including heart and lung evaluation) General: Alert and oriented x3 with proper grooming and hygiene Eyes: Pupils are equal and reactive to light with accommodation. Extraocular movements are intact Throat: Deferred due to COVID-19 precautions Cardiac: Regular rate and rhythm with no murmurs or gallops appreciated Lungs: Clear to auscultation throughout no wheezing, rales or rhonchi Abdomen: Nonobese, nondistended, nontender with normoactive bowel sounds Extremities: Left hip; 1 cm leg length discrepancy left side shorter than the right. Range of motion on the left hip is severely limited compared to the ri ght. On the left he has 95 degrees of flexion versus 115 degrees on the other side. External rotation is to 35 versus 50 on the other side. Internal rotation is to -5 versus 15 on the other side. Positive impingement scour test. Equivocal Stinchfield test. No tenderness over the greater trochanter. Skin is intact. Palpable pulses distally. Sensation intact light touch. Neuro: Cranial nerves II through XII are intact no motor or sensory deficit Skin: Normal in appearance no open skin areas of discharge Principal Diagnosis Left hip osteoarthritis Discharge Exam Left hip: Silverlon dressing is clean dry and intact. Patient is able to actively perform a straight leg raise test without difficulty. He is able to actively dorsi and plantarflex his foot. Logroll test is negative. Light passive internal and external rotation of the hip causes no pain. Knee flexion from 0 to to 90 degrees. Quad strength is 3-1/2 out of 5. Patient's calf is soft and supple nontender to palpation. He is neurovascularly intact in the left lower extremity. Peripheral pulses are 2+. Capillary refill is less than 2 seconds. Discharge Data Allergies Allergy/AdvReac Type Severity Reaction Status Date / Time Penicillins AdvReac Mild Gastrointestinal Verified 04/18/20 08:35 Upset Procedures Performed Operation Date: 06/12/20 09:15 Actual Procedures p Left Total Hip Arthroplasty, Uncemented(Left) - Kavin Macedo MD Hospital Course (1) S/P total hip arthroplasty: Patient had an uneventful overnight stay. He states that he is ready to go home as soon as possible. He would like to complete a.m. PT and OT this morning, and then plans on being discharged home with in-home physical therapy for the first 2 weeks postoperatively. Reviewed total hip precautions PT/OT Weightbearing as tolerated with walker assistance Abduction pillow use x6 weeks Keep dressing in place Ice with EZ WRAP Pain control with p.o. medication DVT prophylaxis with DANIEL stockings and aspirin Patient plans on in-home physical therapy for the first 2 weeks postoperatively Follow-up at [facility] orth[facility] in 2 weeks as previously scheduled With questions contact our clinic at Total Time Total Time Spent Total Time Spent (In Minutes): 20 mins Total Time Includes: Examination of the Patient, Discharge Planning and Medication Reconciliation Discharge Plan Discharge Items Patient Disposition: Home - Home Health Services Reason For Visit: Left Hip Osteoarthritis Discharge Diagnosis: Left Hip Osteoarthritis Activity: As commented below Lifting: None Bathing: Keep incision dry Bathing Comment: may shower tomorrow Sexual Activity: Wait until after follow-up appointment Exercise/Sports: Wait until after follow-up appointment Driving/Machine Use: No driving until cleared Weightbearing Comment: as tolerated with walker assistance Non-emergency contact: Primary Care Provider Call non-emergency contact if: you have any medication questions, your pain is not controlled, your temperature is above 101.5, your wound has increased drainage and your wound pain has increased Follow-up/Referrals: Karla Larkin CRNP [Primary Care Provider] - Diet: Regular Addtl Attending Provider Instructions: Post-operative Instructions Dear Patient and Family/Friends, Before you are discharged from the hospital, it is important to know what to expect when you get home after surgery. To that end, we have created this sheet of discharge instructions which covers many commonly asked questions. Make sure you go through this sheet in its entirety with your nurse before you are discharged. Please note that we will go over the specifics of your surgery and recovery when you return for your first post-operative visit. Sincerely, Dr. Macedo Medications 1. Oxycodone 5 mg: take 1-2 tabs by mouth every 4-6 hrs as needed for pain. A prescription for 30 tablets will be sent to your pharmacy. 2. Diclofenac Sodium 75 mg: take 1 tab twice daily for 30 days post operatively for pain and inflammation relief. A prescription will be sent to your pharmacy with 1 refill. Do not use any other antiinflammatory meds while taking this medication. 3. Aspirin 81 mg: take 1 tab twice daily for post operative blood clot prevention x 30 days. Please purchase this medication. 4. Extra Strength Tylenol 500 mg: take 2 tabs every 6-8 hours as needed for supplemental pain control post operatively. Please purchase. Pain Expect to be in a fair amount of pain after surgery. Remember, our goal is not to eliminate your pain, but to make it tolerable. It is a good idea to stay ahead of your pain by taking the medications you were prescribed once you get h ome. Typically, the pain starts improving 3-7 days after surgery. You should start weaning off the narcotic pain medication (oxycodone, hydrocodone, hydromorphone, morphine) as soon as your pain improves. Please call our office if your pain is not adequately controlled. Ice Ice your operative site at least 5 times a day for 15-30 minutes at a time. Make sure you have a thin cloth between the ice or cooling unit and your skin to prevent henson bite. This is especially important if you received a nerve block. Continue icing your operative site for the first 5-7 days after surgery, then as needed. Diet/Nausea/Vomiting Start by drinking clear liquids and eating crackers. If you can tolerate this, then you may resume your normal diet. If you feel nauseated or vomit, take Zofran/ondansetron (if prescribed). Please call our office if you have intractable nausea or vomiting, or, if after hours, you may go to the Emergency Room for help. Constipation Constipation is a common side effect of narcotic pain medication. If you have not had a bowel movement within 2 days after surgery, we recommend purchasing an over the counter laxative such as Milk of Magnesia, Dulcolax, or Miralax from a local pharmacy, and taking it as instructed. Call our clinic if any questions. Nerve block The anesthesia team sometimes places a nerve block to help with post-operative pain control. This results in significant numbness and inability to move the extremity. The nerve block usually wears off in 8-12 hours, but sometimes can last up to 24 hours. Please call our office if you are still unable to move your extremity after 24 hours, unless you received a pain pump to take home. Nerve blocks typically wear off quickly, so start taking pain medication as soon as you start feeling soreness near your surgical site. Weight bearing and Range of Motion. Do not bear any weight through your operative extremity immediately after surgery. If you had upper extremity surgery, do not lift anything with that arm. If you are in a knee brace, keep it locked in place until your follow-up. We will discuss your weight bearing, range of motion, and lifting restrictions in detail at your first post-operative appointment. Continuous Passive Motion (CPM) Machine If you were prescribed a CPM machine, it will start after your first post- operative appointment, at which time we will give you instructions on the range of motion settings and duration of treatment Physical therapy You will be given a prescription for physical therapy or occupational therapy at your first post-operative appointment. Typically, patients start therapy within 1 week of surgery Wound care and showering We will inspect your wound at your first post-operative visit, and may do a dressing change at that time. Most patients will be in a water-proof dressing that is removed 14 days after surgery. It is normal to see some dried blood on the dressing. Do not remove your dressing, paper strips or sutures yourself unless you are given permission. Showering is allowed the day after surgery. Do not scrub or remove any dressings. The wound should not be submerged underwater (i.e. in a bathtub or pool) until 4 weeks after surgery DANIEL stockings If you were given white stockings, these are to be worn at all times except to shower (on both legs) for the first 2 weeks after surgery. Driving You may not drive while taking narcotic pain medication or while in a cast, splint, sling or brace. You, the patient, need to make the final determination about when you are safe to drive, however, the earliest you may consider driving after surgery is below: Hand/Wrist/Elbow Surgery: 3 days Shoulder Surgery: 2 weeks Hip,/Knee/Ankle Surgery: 4 weeks Fracture repair: 6 weeks Return to Work Your return to work depends on what surgery was done and what type of work you do. Please bring any paperwork your employer needs completed to your first post-operative visit. Also, bring a description of your job duties, as this helps us to understand what risks you may face at work. Travel Avoid long distance travel (greater than 1 hour) in airplanes and cars for the first 6 weeks after surgery. If you must travel, you need to have a Doppler ultrasound done before you travel to rule out a blood clot in your legs. Follow-up You should have a follow-up appointment already scheduled 1-2 days after surgery. If not, please contact our office to make this appointment before you leave the hospital. When to call the office It is normal to have swelling and bruising in the limb that was operated on. This will improve with time. It is also normal to have fevers for the first 2 days after surgery. Reasons you should call your doctor include: Uncontrolled pain; Nausea, vomiting, or constipation that does not improve with medication; Fevers over 101.5, chills, sweats; Drainage or bleeding from the wound; Foul odor; Spreading areas of redness; Any other concerns Pending Studies at Discharge: No Stand-Alone Forms: My [facility] Medications and DC Order Prescriptions: New oxycodone 5 mg tablet 5 mg PO Q4H Qty: 30 RF: 0 diclofenac sodium 75 mg tablet,delayed release (DR/EC) 75 mg PO BID 30 Days Qty: 60 RF: 1 Continued ginseng 100 mg Capsule 100 mg PO PM RF: 0 bilberry 150 mg Capsule 150 mg PO QAM RF: 0 cyanocobalamin (vitamin B-12) 500 mcg Tablet 500 mcg PO PM RF: 0 vitamin E 400 unit Tablet 400 unit PO PM RF: 0 Vitamin C 100 mg Tablet 100 mg PO QAM RF: 0 ginkgo biloba 60 mg Capsule 60 mg PO QAM RF: 0 magnesium 200 mg Tablet 400 mg PO PM RF: 0 omega-3 fatty acids Capsule 1,000 mg PO PM RF: 0 Stan-E 400 mg Tablet 400 mg PO PM RF: 0 saw palmetto 450 mg Capsule 450 mg PO BID RF: 0 cholecalciferol (vitamin D3) [Vitamin D3] 25 mcg (1,000 unit) Tablet 25 mcg PO QAM RF: 0 Kccueebacve-Fwwtq-ZWU Complex 205-021-97-0.5 mg Tablet 1 tab PO BID RF: 0 lutein 20 mg Tablet 20 mg PO QAM RF: 0 turmeric 400 mg Capsule 1,500 mg PO PM RF: 0 omeprazole 20 mg Tablet,Delayed Release (Dr/Ec) 20 mg PO PM RF: 0 Discontinued tramadol 50 mg Tablet 50 mg PO BID RF: 0 Discharge Orders: Discharge Order (Routine); Ordered 06/13/20 Ordered By: Esau Macario Admission Data Admit Date/Time: 06/12/20 11:27 Attending Provider: Kavin Macedo Admit Provider: Kavin Macedo Primary Care Provider: Karla Larkin Other Providers: [place]
== END 2020-06-13 11:50 | disposition home health service (06) ==
LOC: ASU 06:34 → 3E 06:34